=== PATIENT | female | born 1975 | race Caucasian/White ===

== ENCOUNTER → 2016-09-03 | Outpatient (CLI) | payer OTHER ==
--- NOTE | 2016-09-08 19:35 | CPEEG ---
[f rep st] ELECTROENCEPHALOGRAM DATE OF STUDY: 09/03/2016 DATE OF INTERPRETATION: 09/08/2016. INTERPRETATION: This EEG contains occasional atypical generalized spike and wave discharges. 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 The patient's record was reviewed with Dr. Cruz's medical device engineer. We have contacted the patient today and gave appropriate medical recommendations based on her current neurologic records and the EEG findings. She will also have close followup with Dr. Cruz. REPORT: This EEG contains 11 Hz alpha to the posterior head regions. There was no abnormal activation at rest. During photic stimulation at 8 Hz, the patient had a brief 1 second burst of irregular, polymorphic atypical generalized spike and wave discharge (photoparoxysmal response). The patient was then hyperventilated. One minute posthyperventilation, she had another 1 second burst of atypical spike and wave discharge. The patient went on to become drowsy and fell asleep during the study. The patient had mild increased activation of generalized atypical spike and wave discharges during drowsiness and sleep. These generalized discharges continued to be somewhat irregular and polymorphic, lasting between 1 and 2 seconds in duration. /[id number]/MODL MTDD
== END ==
LOC: FCPNEURO 11:00
PROVIDERS: ATTEND Psychiatry & Neurology Neurology
DX: G40.909 Epilepsy, unspecified, not intractable, without status epilepticus (principal)